=== PATIENT | female | born 1970 | race Caucasian/White ===

== ENCOUNTER → 2016-10-22 | Outpatient (CLI) | payer OTHER ==
[~2016-10-22] MED LIST: ALBU18HF2 ORAL INH; AMPH20CA PO; CHOL500050 PO; DULO60CA46 PO; FLUT1DIS3 ORAL INH; LISI1TAB13 PO; MELO-267 PO; METH20TA45 PO; RANI-252 PO; SALINE FLUSH 10ml SYRINGE ONE; SINCALIDE 5 MCG/VIAL IJ ONE; SODIUM CHLORIDE (Bacteriostatic) 30ml VIAL ONE; TEMA15CA PO; [UNRECOGNIZED DRUG - CODE] PO
--- NOTE | 2016-10-22 10:21 | DI ---
EXAM: NM HEPATOBIL/EF LOCATION OF DICTATION: [facility] HISTORY: ITS.REASON: R10.11 RUQ PAIN COMPARISON: None available. TECHNIQUE: After administration of approximately 6.4 mCi Tc99m Choletec, sequential anterior images of the abdomen were obtained. After visualization of the gallbladder, a region of interest was drawn around the gallbladder and approximately 2.0 mcg CCK was administered with sequential anterior images of the abdomen obtained. A time-activity curve was plotted and a gallbladder ejection fraction was calculated. Normal ejection fractions are estimated to be approximately greater than 35%. FINDINGS: There is normal radiotracer washout from the blood pool and uptake within the hepatocytes. There is normal excretion of radiotracer into the intrahepatic biliary ducts. The radiotracer extends to the extrahepatic biliary ducts and gallbladder in normal fashion. There is normal uptake demonstrated within the small bowel loops. The gallbladder ejection fraction is normal measuring 93%. IMPRESSION: 1. No evidence for acute cholecystitis. 2. The gallbladder ejection fraction is normal measuring 93%. .
== END ==
LOC: IMA 07:55
PROVIDERS: ATTEND Family Medicine
DX: R10.11 Right upper quadrant pain (principal)
CPT/HCPCS: 78227; A9537; J2805